=== PATIENT | female | born 1985 ===

== ENCOUNTER 2018-09-10 10:51 | Emergency (ER) | payer SELFPAY ==
[2018-09-10 11:03] VITALS: BMI 28.3
[2018-09-10 11:05] VITALS: BP 101/64; PULSE 84; RESP 17; TEMP 98.3; O2SAT 98
[2018-09-10 13:09] LABS: SQUAMOUS EPITHIAL 15 /hpf (0-5); URINE BACTERIA OCC (<OCC); URINE BILIRUBIN NEGATIVE (NEGATIVE); URINE BLOOD NEGATIVE (NEGATIVE); URINE CLARITY CLOUDY (Clear); URINE COLOR YELLOW (YELLOW); URINE GLUCOSE (UA) NEG (NEGATIVE); URINE LEUKOCYTE ESTERASE TRACE Leu/uL (Negative); URINE PROTEIN NEGATIVE (NEGATIVE); URINE UROBILINOGEN 0.2-1.0 mg/dL (0.2-1.0)
--- NOTE | 2018-09-10 13:45 | ED PDOC ---
HPI: Abdomen Time Seen by Provider: 09/10/18 11:58 Chief Complaint (Nursing): Abdominal Pain Chief Complaint (Provider): Suprapubic pain History Per: Patient History/Exam Limitations: no limitations Onset/Duration Of Symptoms: Hrs Outside of [place] travel?: No Current Symptoms Are (Timing): Still Present Location Of Pain/Discomfort: Suprapubic Additional Complaint(s): 33 yo female, presents at 18 weeks gestation with suprapubic pain. PT reports pain central, cramping. No pain with urination, no urinary frequency. No N/V/D. PT denies vaginal bleeding and reports feeling movement. No fever/chills. No back pain. Pt has next appointment on 09/25. Past Medical History Reviewed: Historical Data, Nursing Documentation, Vital Signs Vital Signs: Last Vital Signs Temp 98.3 F 09/10/18 11:03 Pulse 84 09/10/18 11:03 Resp 17 09/10/18 11:03 BP 101/64 09/10/18 11:03 Pulse Ox 98 09/10/18 11:03 - Medical History PMH: No Chronic Diseases Denies: Chronic Kidney Disease - Surgical History Surgical History: No Surg Hx - Family History Family History: States: No Known Family Hx - Living Arrangements Living Arrangements: With Family - Social History Current smoker - smoking cessation education provided: No - Immunization History Hx Tetanus Toxoid Vaccination: No Hx Influenza Vaccination: No Hx Pneumococcal Vaccination: No - Home Medications Home Medications: Ambulatory Orders Medication Instructions Recorded Nitrofurantoin Macrocrystals 100 mg PO BID #10 cap 09/10/18 [Macrobid] - Allergies Allergies/Adverse Reactions: Allergies Allergy/AdvReac Type Severity Reaction Status Date / Time Penicillins Allergy ANAPHYLAXIS Verified 09/10/18 11:32 Review of Systems ROS Statement: Except As Marked, All Systems Reviewed And Found Negative Constitutional: Negative for: Fever, Chills Cardiovascular: Negative for: Chest Pain, Orthopnea Respiratory: Negative for: Cough, Shortness of Breath Gastrointestinal: Negative for: Nausea, Vomiting, Abdominal Pain, Diarrhea Genitourinary Female: Positive for: Pelvic Pain. Negative for: Dysuria, Fr equency, Incontinence, Vaginal Discharge, Vaginal Bleeding Physical Exam - Reviewed Nursing Documentation Reviewed: Yes Vital Signs Reviewed: Yes - Physical Exam Appears: Positive for: Well, Non-toxic, No Acute Distress Head Exam: Positive for: ATRAUMATIC, NORMAL INSPECTION, NORMOCEPHALIC Skin: Positive for: Normal Color, Warm, DRY Eye Exam: Positive for: Normal appearance ENT: Positive for: Normal ENT Inspection Neck: Positive for: Normal, Painless ROM Cardiovascular/Chest: Positive for: Regular Rate, Rhythm Respiratory: Positive for: CNT, Normal Breath Sounds Gastrointestinal/Abdominal: Positive for: Normal Exam, Soft. Negative for: Tenderness Back: Positive for: Normal Inspection Extremity: Positive for: Normal ROM Neurologic/Psych: Positive for: Alert, Oriented - ECG O2 Sat by Pulse Oximetry: 98 Disposition - Clinical Impression Clinical Impression: UTI (urinary tract infection) - Disposition Referrals: [facility] [Outside] Disposition: Routine/Home Disposition Time: 15:47 Condition: GOOD Prescriptions: Nitrofurantoin Macrocrystals [Macrobid] 100 mg PO BID #10 cap Instructions: Urinary Tract Infections in Adults Forms: [facility] (Maltese)
--- NOTE | 2018-09-10 15:21 | US ---
Date of service: 09/10/2018 PROCEDURE: OB Pelvic Ultrasound HISTORY: suprapubic pain, 18 weeks LMP: 05/03/2018 COMPARISON: None available. FINDINGS: UTERUS: Gestational sac: Single intrauterine fetus in breech presentation. BPD: 4.2 cm corresponding to 18 weeks and 4 days of gestational age. HC: 15.6 cm corresponding to 18 weeks and 4 days of gestational age. AC: 13.5 cm corresponding to 18 weeks and 6 days of gestational age. FL: 2.8 cm corresponding to 18 weeks and 4 days of gestational age. Heart rate: 148 bpm. age (Ultrasound estimated): 18 weeks and 5 days Shiela-gestational hemorrhage: None. Date of delivery (Ultrasound estimated) : 02/06/2019 Placenta is posterior. CERVIX: Measures 3.2 cm. Long and closed. No cervical abnormality seen. RIGHT OVARY: Not visualized. LEFT OVARY: Not visualised. FREE FLUID: None. OTHER FINDINGS: None. IMPRESSION: Single live intrauterine fetus in cephalic presentation. The estimated date of delivery by ultrasound is 02/06/2019. The ultrasound dates correspond with the clinical dates. Please note this is a limited OB ultrasound performed on an emergent basis. Dedicated anatomic survey is recommended.
== END 2018-09-10 16:36 | disposition home or self-care (01) ==
LOC: H.ER 10:51
DX: O23.42 Unspecified infection of urinary tract in pregnancy, second trimester (principal); Z3A.18 18 weeks gestation of pregnancy; Z88.0 Allergy status to penicillin

== ENCOUNTER 2018-10-28 16:05 | Emergency (ER) | payer SELFPAY ==
[2018-10-24 15:00] VITALS: BMI 28.3
[2018-10-28 22:42] VITALS: BP 110/64; PULSE 82; RESP 18; TEMP 98.3
--- NOTE | 2018-10-29 08:43 | OBHP ---
Datetime: 10/28/2018 16:05 IP Adm Impression: , intrauterine IP Admit Plan: Observation/Evaluation; Discharge home Admit Comment, IP Provider: 33 y/o female @ 25.3 GA presents to [facility] w/ c/o headache persist ent for 3 weeks as well as back pain presistent for months, both alleviated by Tylanol. Patient endor ses two episodes of loose stool today. She denies n/v/fevers/chills/dizziness/urinary symptoms. She d enies vaginal bleed/VFL/abdominal cramping. She was last sexually active yesterday afternoon. OB: Dr. Eldridge/[facility] Obhx: 2 term NSVDs (2002 and 2007) Pmhx: denies HomeRx: prenatals Allergy: penicillin Socialhx: denies toxic habits Surghx: gallbladder stone removal Famhx: non-contributory ROS negative except per HPI Physical Exam Gen: sitting up comfortably in bed; no acute distress Heart: S1 S2 present, RRR Lungs: normal respiratory effort, clear to auscultation bilaterally Abd: gravid, soft, non-tender, normal bowel sounds SVE (By Dr. Grider): closed cervix Neuro: alert, oriented, CN II-XII intact Psych: normal mood and affect Assessment and Plan 33 y/o female @ 25.3 GA IUP c/o headache and diarrhea Vitals stable; no elevated BP Patient is not phyllis Diarrhea likely secondary to gasteroentritis; sx improving, afebrile; ER precautions given. Headache improved w/ Tylanol. Patient was worried that Tylanol is contraindicated in . Lloyd mcdaniel reassured, advised of ER precautions and to follow up w/ PMD. She is stable for discharge [facility]. She has a scheduled appointment w/ Dr. Eldridge on 11/26/2018. Will contact central scheduling to make f/u appointment within 1 wk. Case discussed w/ attending, Dr. Cheo Guajardo, pgyi OB Hospitalist note: With PGY1, I saw and examined this patient. Spoke o PMD about RODRÍGUEZ. advised pt to f/u1-2w - possible FP/Neuro consult if not relived with OTC meds...tylenol PRN Agree with note MAHNDO Pelvic Type - PN: Not Done Extremities - PN: Normal Abdomen - PN: Normal Back - PN: Not Done Breast - PN: Not Done Lungs - PN: Normal Heart - PN: Normal Thyroid - PN: Not Done Neurologic - PN: Normal HEENT - PN: Normal General - PN: Normal FHR - Baseline A Provider: 150 Gestation - Est Wks by US: 25.3 IP Hx Assessment: The History has been Reviewed and is Current Vital Signs Provider: Reviewed; Within Normal Limits IP Chief Complaint: Illness NICHD Variability Prov Fetus A: Moderate 6-25bpm NICHD Accel Fetus A IP Provider: 15X15 FHR Category Provider Fetus A: Category I NICHD Decel Fetus A IP Provider: None Dilatation, Provider: closed Genitourinary Exam: Not Done DTRs - PN: Not Done
--- NOTE | 2018-10-29 08:45 | OBDCSUM ---
Datetime: 10/28/2018 17:07 Discharge Diagnosis Prov Other: Headache / diarrhea
== END 2018-10-28 18:41 | disposition home or self-care (01) ==
LOC: H.EROB2 16:05
DX: O26.92 Pregnancy related conditions, unspecified, second trimester (principal); R51 Headache; R19.7 Diarrhea, unspecified; M54.9 Dorsalgia, unspecified; Z3A.25 25 weeks gestation of pregnancy

== ENCOUNTER 2019-01-31 04:14 | Inpatient (IN) | payer MEDICAID, SELFPAY ==
[2019-01-31 04:53] VITALS: BMI 31.6
[2019-01-31] MEDS ORDERED: Morphine 4 MG/ML VIAL IM ONE (05:15)
[2019-01-31] MEDS ORDERED: Lactated Ringer's 1,000 ML IV ONE (07:56)
[2019-01-31] MEDS ORDERED: Lactated Ringer's 1,000 ML IV SCH ×2 (08:00→09:31)
[2019-01-31 08:48] LABS: BASO # 0.1 K/uL (0.0-0.2); BASO % 0.9 % (0.0-2.0); EOS # 0.1 K/uL (0.0-0.7); EOS % 1.1 % (0.0-4.0); HEMOGLOBIN 12.1 g/dL (12.0-16.0); LYMPH # 1.9 K/uL (1.0-4.3); LYMPH % 18.2 % (20.0-40.0); MEAN CELL VOLUME 82.4 fl (81.0-99.0); MEAN CORPUSCULAR HEMOGLOBIN 26.8 pg (27.0-31.0); MEAN CORPUSCULAR HGB CONC 32.6 g/dL (33.0-37.0); MEAN PLATELET VOLUME 10.8 fl (7.2-11.7); MONO # 0.5 K/uL (0.0-0.8); MONO % 4.8 % (0.0-10.0); NEUT # 7.7 K/uL (1.8-7.0); NRBC % 0.1 % (0.0-0.0); RBC 4.52 Mil/uL (3.80-5.20); RED CELL DISTRIBUTION WIDTH 14.5 % (11.5-14.5); WHITE BLOOD COUNT 10.3 K/uL (4.8-10.8)
[2019-01-31] MEDS ORDERED: Oxytocin 30 UNIT in NS 500 ml 30 UNITS/500 ML BAG IV ONE (09:07)
[2019-01-31] MEDS ORDERED: OXYTOCIN/0.9 % NS 20 UNIT/1,000 ML BAG IV ONE (09:09)
--- NOTE | 2019-01-31 09:23 | OBADHP ---
Datetime: 01/31/2019 07:50 Admit Comment, IP Provider: HPI: Eunice is a 33 year old at 39.0 weeks here for labor eval. She h as been phyllis on and off for the last week but reports they became more intense over the last 2 4 hours, now every 5 minutes and 9/10 in pain. No vaginal bleeding or LOF, good movement. KAM: 02/07/19 by LMP, confirmed by first trimester LMP History G1: in 2002 at term, no complications, male G2: in 2007 at term, no complications, male G3: current PMH Denies PSH L ankle surgery in childhood Medications PNV Allergies PENICILLIN - Anaphylaxis Social Denies tobacco, alcohol or drug use in this Family History Not significant PHYSICAL EXAM Vitals reviewed labs: Hep B neg, Rubella immune, RPR/HIV non reactive, GC/Chlamydia negative, quantiferon negative, GBS negative ASSESSMENT/PLAN: 33 year old at 39.0 weeks here with spontaneous labor. Patient was observed in [facility] over a period of 3 hours and has made cervical change, patient will be admitted for labor - GBS negative - Patient does not want anything for pain control - CBC, T_S - Anticipate vaginal delivery Plan discussed with attending Dr. Luis Stern MD OB Fellow Addendum by Dr. Smith: I have evalauted the patient independently and I agree with the above FHR - Baseline A Provider: 125 Contraction Comments Provider: Q3-4 Gestation - Est Wks by US: 39.0 Vital Signs Provider: Reviewed; Within Normal Limits IP Chief Complaint: Uterine contractions NICHD Variability Prov Fetus A: Moderate 6-25bpm NICHD Accel Fetus A IP Provider: 15X15 FHR Category Provider Fetus A: Category I NICHD Decel Fetus A IP Provider: None Dilatation, Provider: 4 EGA AdmitDate IP: 39.0 IP Adm Impression: Term, intrauterine IP Admit Plan: Admit to unit; Initiate labor protocol Datetime: 01/31/2019 04:56 Abdomen - PN: Normal Lungs - PN: Normal Heart - PN: Normal HEENT - PN: Normal General - PN: Normal Presentation-Admit: Vertex Membranes, Provider: Intact Effacement, Provider: 30 Station, Provider: -3 Datetime: 10/28/2018 16:05 Pelvic Type - PN: Not Done Extremities - PN: Normal Back - PN: Not Done Breast - PN: Not Done Thyroid - PN: Not Done Neurologic - PN: Normal IP Hx Assessment: The History has been Reviewed and is Current Genitourinary Exam: Not Done DTRs - PN: Not Done
[2019-01-31] MEDS ORDERED: Bupivacaine HCl 0.5% PF (30 ml) Inj ONE (10:07)
[2019-01-31] MEDS ORDERED: Fentanyl/Bupivacaine HCl 250 ML EPI ONE (10:11)
[2019-01-31] MEDS ORDERED: Lidocaine 1% Inj (20ml) ONE (13:36)
[2019-01-31 14:33] VITALS: RESP 18; TEMP 97.8
[2019-01-31] MEDS ORDERED: Oxycodone/Acetaminophen 5/325 mg Tab PO PRN (17:08)
[2019-01-31] MEDS ORDERED: Benzocaine/Menthol SPRAY TOP PRN (17:08)
[2019-02-01] MEDS ORDERED: Oxycodone/Acetaminophen 5/325 mg Tab PO PRN (06:22)
[2019-02-01] MEDS ORDERED: Benzocaine/Menthol SPRAY TOP PRN (06:22)
[2019-02-01 07:59] LABS: BASO % 0.1 % (0.0-2.0); EOS # 0.1 K/uL (0.0-0.7); EOS % 1.1 % (0.0-4.0); HEMOGLOBIN 10.9 g/dL (12.0-16.0); LYMPH # 1.6 K/uL (1.0-4.3); LYMPH % 12.6 % (20.0-40.0); MEAN CORPUSCULAR HEMOGLOBIN 27.2 pg (27.0-31.0); MEAN CORPUSCULAR HGB CONC 32.7 g/dL (33.0-37.0); MEAN PLATELET VOLUME 10.3 fl (7.2-11.7); MONO # 0.6 K/uL (0.0-0.8); MONO % 4.9 % (0.0-10.0); NEUT # 10.1 K/uL (1.8-7.0); NEUT % 81.3 % (50.0-75.0); NRBC % 0.1 % (0.0-0.0); RBC 4.03 Mil/uL (3.80-5.20); RED CELL DISTRIBUTION WIDTH 14.4 % (11.5-14.5); WHITE BLOOD COUNT 12.4 K/uL (4.8-10.8)
--- NOTE | 2019-02-02 07:39 | OBPPN ---
Datetime: 02/02/2019 07:30 PP Pain Prov: Within normal limits PP Nausea Prov: Denies PP Flatus Prov: Yes PP BM Prov: No PP Heart Prov: Normal PP Lungs Prov: Normal PP Abdomen/Uterus Prov: Normal PP Extremities Prov: Normal PP Comments Phys Exam Prov: see note PP Impression Prov: Normal progression PP Plan Prov: Continue present management; Discharge PP Progress Note Prov: Pt is a 33 YO , PPD 2 s/p on 01/31/19. Seen and examined at bedside t his AM. No complains at present. Pt pain controlled with medication. Ambulate without difficulties Pt is breast and bottle feeding, she is tolerating regular diet. Lochia less than menses in volume. +Fl atus, -BM. Denies fevers, chills, dizziness, chest pain, SOB, N/V/D, hematuria or dysuria. VS: Vitals WNL Gen: NAD HEENT: NCAT Cardio: + S1S2, RRR Lungs: CTA B/L, no wheezes Abd: soft, appropriate tenderness to palpation, + BS, Uterus firm below level of umbilicus Ext: No edema, calves non tender Assessment: 33 YO s/p PPD 2, with normal progression. Clear to go home today. checkup in 4-6 weeks Plan: - and ambulation encouraged. - Ibuprofen 600 mg 1 tab Q 6h PRN mild pain -Continue vitamin -DC plan today 02/02 Case discussed with attending MD Myriam PGY1 OB Hospitalist Addendum: Pt seen and examined by me. Agree w/ above. PPD 2 s/p , doing well, breast and bottle feeding. Discharge home today. (ES) Vital Signs Provider PP: Reviewed; Within Normal Limits Datetime: 02/01/2019 07:41 PP Breasts Prov: Normal PP Lochia Prov: Normal PP Vulva/Perineum Prov: Not Done PP CVA Tenderness Prov: Normal IP PP Procedures: None
--- NOTE | 2019-02-02 11:04 | OBDCSUM ---
Datetime: 02/02/2019 07:36 Discharged to, Provider: Home Follow up at, Provider: Dr Jazmyn Zee Instr Activity: Normal activity; May be up to bathroom; May be up for meals; May Shower Disch Instr Diet: Regular Discharge Diet restrict Prov: none Discharge Instructions, Provider: Routine instructions given Discharge Diagnosis, Provider: Term Delivered Discharge Time: 02/02/2019 10:32 Follow up in weeks, Provider: [facility] Disch Referrals: None Contraception discussed, Prov: Yes Disch Activity Restrictions: No lifting; Minimize stair-climbing; No sexual activity; Nothing in vag ariadna - [place], tampons, douche Discharge Comment, Provider: Diagnosis: 33 YO s/p NVD of a viable baby male on 01/31/19 with EGA: 39 weeks. : Male, wt [id number] Post- D/C Summary: no complication during delivery and post- care. Lochia less than me nses in volume. Pt able to pass gas, ambulate and pass urine. Tolerate regular diet, no RODRÍGUEZ, CP, SOB, N/V, fever or other acute complaint at this time. Fundus firm below umbilicus level. Pt is hemodynami loni stable. H/H : 10.9/33.4 Discharge Instructions given to patient: PNV 1 tab PO daily May take Ibuprofen OTC 400mg Q 6h prn for mild-mod pain if needed ED precautions: If excessive bleeding, pain that does not get relief, fever >100.4, palpitations, SOB, CP or other concerning symptom go to the ED PT was urged if feeling sad, mood swing, depression, neglect of baby, suicidal thoughts, homicidal thoughts go to ER or call 911 for help Pt should go to her Primary care doctor if have difficulty with breast feeding F/U in 4-6 week for PP visit with you PMD in 4 to 6 weeks. Contraception after Delivery: Control Pill/Patch
[2019-02-03 00:06] VITALS: BP 109/68; PULSE 88; O2SAT 100
== END 2019-02-02 10:30 | disposition home or self-care (01) | DRG 560 ==
LOC: H.EROB2 04:14 → H.L&D 07:56 → H.OB/GYN 16:20
PROVIDERS: ADMIT Obstetrics & Gynecology; ATTEND Obstetrics & Gynecology
PROC: 10E0XZZ Delivery of Products of Conception, External Approach (ICD-10-PCS; principal; 2019-01-31)
DX: O80 Encounter for full-term uncomplicated delivery (principal); Z37.0 Single live birth; Z3A.39 39 weeks gestation of pregnancy